=== PATIENT | female | born 1980 | race Caucasian/White ===

== ENCOUNTER 2017-11-08 04:21 | Observation (INO) | payer BC ==
[2017-11-08] MEDS ORDERED: SODIUM CHLORIDE 0.9% 1000ML 1,000 ML IVS ONE (04:46)
--- NOTE | 2017-11-08 04:46 | ED.PDOC ---
History of Present Illness - General Chief Complaint: Syncope/Near Syncope Stated Complaint: Syncope, head lac, neck pain Time Seen by Provider: 11/08/17 04:40 Source: patient Exam Limitations: no limitations - History of Present Illness Initial Comments: patient comes in today with syncopal episode. Patient states she was in her normal usual health on going to bed. She woke up to go to the bathroom and noted that she had a severe headache that was bilateral, constant, and not associated with other symptoms such as vision change or nausea. Patient states she got dizzy and then awoke on the floor with a laceration to her head. Patient has had a syncopal episode in the remote past but that was with . Since then she has had a hysterectomy. Patient stated she's had no recent fever, chills, cough or cold symptoms. She had no palpitations or shortness of breath prior to the episode or currently. Patient did suffer a laceration to her forehead on the right side. Patient is unsure of how long she was unconscious but is alert and oriented to person place and time here. Patient recently started on some medication for her thyroid earlier this week, level fluroxene and was started at the same time on [id number] vitamin D. Patient also had a first seizure performed by dermatology with a lesion removed on her lower back. Patient's past medical history is significant for hypothyroidism. She does smoke about half a pack a day and drinks a couple of beers every couple of days. She did have alcohol last night. Patient does not take illicit drugs. Timing/Prior Episodes: remote history Precipitating Factors: other - severe headache Context: standing Loss of Consciousness: unsure Current Symptoms: headache Allergies/Adverse Reactions: Allergies NO KNOWN ALLERGY Allergy (Verified 11/08/17 04:48) Home Medications: Ambulatory Orders Ibuprofen [Motrin] 800 mg PO PRN 11/08/17 Levothyroxine Sodium 50 mcg PO AC 11/08/17 Review of Systems - Review of Systems Constitutional: States: see HPI. Denies: chills, fever EENTM: States: other - headache. Denies: eye pain, ear pain, nose pain, nose congestion, throat pain Respiratory: States: no symptoms reported. Denies: cough, short of breath, wheezing Cardiology: States: no symptoms reported. Denies: chest pain, palpitations Gastrointestinal/Abdominal: States: no symptoms reported. Denies: abdominal pain, diarrhea, nausea, vomiting Genitourinary: States: no symptoms reported Musculoskeletal: States: see HPI, neck pain, other - pain to the left shoulder and right knee Skin: States: no symptoms reported Neurological: States: see HPI, headache. Denies: anxiety, depressed, numbness, paresthesia, pre-existing deficit, tingling, tremors Endocrine: States: no symptoms reported Past Medical History (General) - Patient Medical History Hx Other PMH: Yes - hypothyroidism Surgical History: other - hyst Physical Exam - Physical Exam General Appearance: Other - awake and alert with C-collar in place, laceration to right forehead Eyes, Ears, Nose, Throat Exam: PERRL/EOMI, normal ENT inspection, TMs normal, pharynx normal Neck: other Cardiovascular/Respiratory: regular rate, rhythm, no M/R/G, normal peripheral pulses, no JVD, normal breath sounds, no respiratory distress Gastrointestinal/Abdominal: normal bowel sounds, non tender, soft Back Exam: normal inspection, no CVA tenderness Extremity: normal range of motion, other - no deformity but abrasions to right knee and TTP to the left shoulder and humerus and right knee with palpation 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, 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 Exam: normal hearing, normal speech Motor/Sensory: no motor deficit, no sensory deficit, no pronator drift DTR: 2+: Biceps, left, Biceps, right Skin Exam: normal color, warm/dry Progress - Results/Orders Results/Orders: 11/08/17 04:40 Cervical Spine [CT] Stat Head [CT] Stat Humerus,Left [RAD] Stat Shoulder,Left 2 or More Views [RAD] Stat URINALYSIS Stat 11/08/17 04:42 EKG Assessment ONCE 11/08/17 04:45 EKG STAT 11/08/17 04:46 Sodium Chloride 0.9% 1000ML [Ns 1000 ml] 1,000 ml IVS ONCE 11/08/17 04:47 Knee,Right 2 or More Views [RAD] Stat 11/08/17 04:58 KCl 20Meq/Water For Inj 100Ml [Potassium 20meq in Water 100ml] 20 meq Premix Bag 1 bag IVPB ONCE 11/08/17 05:12 URINE DRUG SCREEN, 7 ASSAY Stat Laboratory Results WBC 16.5 K/mm3 (4.8-10.8) H 11/08/17 04:40 RBC 4.47 M/mm3 (4.20-5.40) 11/08/17 04:40 Hgb 15.1 gm/dL (12.0-16.0) 11/08/17 04:40 Hct 44.3 % (36.0-47.0) 11/08/17 04:40 MCV 99.1 fl (81.0-99.0) H 11/08/17 04:40 MCH 33.9 pg (27.0-31.0) H 11/08/17 04:40 MCHC 34.2 g/dL (33.0-37.0) 11/08/17 04:40 RDW 12.5 % (11.5-14.5) 11/08/17 04:40 Plt Count 308 K/mm3 (130-400) 11/08/17 04:40 MPV 7.6 fl (7.40-10.4) 11/08/17 04:40 Absolute Neuts (auto) 9.50 K/uL (1.8-6.8) H 11/08/17 04:40 Absolute Lymphs (auto) 5.50 K/uL (1.0-3.4) H 11/08/17 04:40 Absolute Monos (auto) 1.10 K/uL (0.2-0.8) H 11/08/17 04:40 Absolute Eos (auto) 0.20 K/uL (0.0-0.4) 11/08/17 04:40 Absolute Basos (auto) 0.10 K/uL (0.0-0.1) 11/08/17 04:40 Neutrophils % 57.9 % (42.0-78.0) 11/08/17 04:40 Lymphocytes % 33.4 % (20.0-50.0) 11/08/17 04:40 Monocytes % 6.6 % (2.0-9.0) 11/08/17 04:40 Eosinophils % 1.5 % (1.0-5.0) 11/08/17 04:40 Basophils % 0.6 % (0.0-2.0) 11/08/17 04:40 Sodium 137 mmol/L (135-145) 11/08/17 04:40 Potassium 2.9 mmol/L (3.6-5.0) L 11/08/17 04:40 Chloride 102 mmol/L (101-111) 11/08/17 04:40 Carbon Dioxide 25 mmol/L (21-31) 11/08/17 04:40 Anion Gap 12.9 (12-18) 11/08/17 04:40 BUN 10 mg/dL (7-18) 11/08/17 04:40 Creatinine 0.67 mg/dL (0.6-1.3) 11/08/17 04:40 BUN/Creatinine Ratio 14.9 (10-20) 11/08/17 04:40 Random Glucose 96 mg/dL (70-105) 11/08/17 04:40 Serum Osmolality 272.7 mOsm/L (275-295) L 11/08/17 04:40 Calcium 8.8 mg/dL (8.4-10.2) 11/08/17 04:40 Total Bilirubin 0.7 mg/dL (0.2-1.0) 11/08/17 04:40 AST 18 IU/L (10-42) 11/08/17 04:40 ALT 16 IU/L (10-60) 11/08/17 04:40 Alkaline Phosphatase 45 IU/L (42-121) 11/08/17 04:40 Creatine Kinase 105 IU/L (26-140) 11/08/17 04:40 CK-MB (CK-2) 1.5 ng/mL (0.0-4.4) 11/08/17 04:40 CK-MB (CK-2) % Not Reportable 11/08/17 04:40 Troponin I < 0.02 ng/mL (0.01-0.05) 11/08/17 04:40 Serum Total Protein 6.3 gm/dL (6.4-8.2) L 11/08/17 04:40 Albumin 3.9 g/dl (3.2-5.5) 11/08/17 04:40 Globulin 2.4 gm/dL (2.3-3.5) 11/08/17 04:40 Albumin/Globulin Ratio 1.6 (1.1-1.9) 11/08/17 04:40 Ethyl Alcohol < 5.40 mg/dL (0-79) 09/30/18 04:40 CT reading is still pending but mass vs bleeding seen in the posterior area. Air evac called and will transfer to NS consult. - EKG/XRAY/CT EKG: Sinus, no ST T wave changes Comments: normal QTC an normal axis with 1st degree AV block Departure - Departure Clinical Impression: Cerebral brain hemorrhage Syncope Qualifiers: Syncope type: unspecified Qualified Code(s): R55 - Syncope and collapse Disposition: Transfer to Hospital Condition: Good Departure Forms: ED Discharge - Pt. Copy, Patient Portal Self Enrollment Referrals: John Barros MD [Primary Care Provider] - 1-2 Weeks Home Medications: Ambulatory Orders Ibuprofen [Motrin] 800 mg PO PRN 11/08/17 Levothyroxine Sodium 50 mcg PO AC 11/08/17 Transfer to Outside Facility - Transfer Information Accepting Provider:: Robi Accepting Facility: [facility] Reason for Transfer: specialized care not available
[2017-11-08] MEDS ORDERED: ONDANSETRON INJ 4 MG/2 ML VIAL IV ONE (04:54)
[2017-11-08] MEDS ORDERED: KCL 20MEQ/WATER FOR INJ 100ML 20 MEQ in PREMIX BAG 1 BAG IVPB ONE (04:58)
[2017-11-08] MEDS ORDERED: KCL 20MEQ/WATER FOR INJ 100ML 100 ML IVPB ONE (05:05)
--- NOTE | 2017-11-08 05:28 | CT ---
EXAM DESCRIPTION: Head CLINICAL HISTORY: syncope with head injury preceding ERAZO COMPARISON: None Available. Technique: Contiguous axial images of the brain were obtained without the administration of intravenous contrast. Coronal and sagittal reformats obtained and reviewed. This exam was performed according to our departmental dose-optimization program which includes use of Automated Exposure Control, adjustment of the mA and/or kV according to patient size and/or use of iterative reconstruction technique. Findings: Brain: No hemorrhage. No territorial infarct. No mass effect. No herniation. Ventricles: Within normal limits for patient's age. Bones: No acute osseous abnormality. Paranasal sinuses: Unremarkable. Mastoid air cells: Unremarkable. Soft tissues: No acute abnormality. IMPRESSION: No acute intracranial abnormalities. Electronically signed by: John Rich DO 11/08/2017 5:27 AM CDT
--- NOTE | 2017-11-08 05:31 | RAD ---
EXAM DESCRIPTION: Shoulder,Left 2 or More Views CLINICAL HISTORY: 37 years Female, fall with pain COMPARISON: None. FINDINGS: No fracture or dislocation. Soft tissues are unremarkable. IMPRESSION: No acute abnormality. Electronically signed by: John Rich DO 11/08/2017 5:30 AM CDT
--- NOTE | 2017-11-08 05:31 | CT ---
EXAM DESCRIPTION: Cervical Spine CLINICAL HISTORY: 37 years Female syncope with head injury preceding ERAZO COMPARISON: None TECHNIQUE: Multiplanar imaging through the cervical spine without contrast. This exam was performed according to our departmental dose-optimization program, which includes automated exposure control, adjustment of the mA and/or kV according to patient size and/or use of iterative reconstruction technique. FINDINGS: No fracture. No subluxation. Disc spaces are preserved. Soft tissues are unremarkable. Visualized lung is clear. IMPRESSION: No acute abnormality. No fracture or subluxation. Electronically signed by: John Rich DO 11/08/2017 5:30 AM CDT
--- NOTE | 2017-11-08 05:32 | RAD ---
EXAM DESCRIPTION: Knee,Right 2 or More Views CLINICAL HISTORY: 37 years Female, fall and pain COMPARISON: None. FINDINGS: No fracture or dislocation. Soft tissues are unremarkable. IMPRESSION: No acute abnormality. Electronically signed by: John Rich DO 11/08/2017 5:30 AM CDT
--- NOTE | 2017-11-08 05:32 | RAD ---
EXAM DESCRIPTION: Humerus,Left CLINICAL HISTORY: 37 years Female, fall with pain COMPARISON: None. FINDINGS: No fracture or dislocation. Soft tissues are unremarkable. IMPRESSION: No acute abnormality. Electronically signed by: John Rich DO 11/08/2017 5:31 AM CDT
[2017-11-08] MEDS ORDERED: CHLORHEXIDINE GLUCONATE 4 % 15 ML UD TOP ONE (05:40)
[2017-11-08] MEDS ORDERED: LIDOCAINE 1% 10 ML VIAL INJ ONE (05:40)
[2017-11-08] MEDS ORDERED: IBUPROFEN 200 MG TAB PO ONE (06:13)
--- NOTE | 2017-11-08 06:23 | HP ---
SUPERVISING PHYSICIAN: Olayinka Blanco M.D. CHIEF COMPLAINT: Syncopal episode.with closed head injury. HISTORY OF PRESENT ILLNESS: Ms. Dick is a 37 year-old female patient that presented to the Emergency Department early this morning after she had had a syncopal episode. She noted that she had been in her normal state of health and went to bed, woke up to go to the bathroom and noted she had a severe headache that was bilateral and constant, but not associated with any other symptoms. No change in her vision or nausea. She attempted to sit on the toilet and then later awoke on the floor and had a laceration to her forehead. She has had a previous syncopal episode in the past but it was associated with a . She denied any significant symptoms. No fevers, chills, coughs. No palpitations or shortness of breath. Her recall of the events was limited and she is unsure how long she was actually unconscious, but she was alert and oriented on admission to the E. R. The only significant change in her medical history is that she was recently diagnosed with hypothyroidism and started on Levothyroxine in the last week as well as over-the -counter Vitamin D. She also had last week an excision of a lesion of her lower back. She also drinks alcohol on a fairly regular basis and had a drink the night of, but does not use illicit drugs and her alcohol level less than 5. Initially workup included trauma workup with CT scans of the head and C- spine which were all without any acute findings. No dislocations. No acute fractures. 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 There is no noted infarct or other acute findings. Initially the patient was to be transferred via air evac to [facility] on initial CT reading by Dr. Monk as there were concerns for a mass versus a bleed, however after consultation with the radiologist the findings were noted to be congenital and an incidental finding. At that point the patient had lab studies that showed she had a leukocytosis of 16,500 without a left shift. Chemistries showed a mild hypokalemia with a 2.9 potassium. Vital signs were showing her to be stable, afebrile. Dr. Monk repaired the laceration to her forehead with sutures and then requested that the patient be placed in Observation given the loss of consciousness and findings initially on CT as well as the reported sudden headache prior to her syncopal episode. The patient is going to be placed in Observation for close neurological and cardiac monitoring. She was placed in Observation in stable condition. PAST MEDICAL HISTORY: 1. Hypothyroidism. PAST SURGICAL HISTORY: 1. Partial hysterectomy. HOME MEDICATIONS: 1. Levothyroxine 50 mcg daily. 2. Motrin 800 mg every 6 hours as needed for pain. ALLERGIES: NO KNOWN DRUG ALLERGIES. FAMILY HISTORY: Noncontributory. SOCIAL HISTORY: The patient lives in [place] and is recently , going through a divorce. 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 She is a current tobacco smoker of approximately 1/2 pack to 1 pack of cigarettes daily. She also notes that she has been drinking on a fairly regular basis anywhere from 3 beers to 2 or 3 mixed drinks daily, but is working to decrease this. She denies any use of illicit drugs. REVIEW OF SYSTEMS: CONSTITUTIONAL: Denied any fevers or chills. HEENT: Denied any ear aches, sore throat, nasal congestion. RESPIRATORY: Denies any shortness of breath, coughing or wheezing. CARDIOVASCULAR: Denies any chest pains or palpitations, but as noted in History of Present Illness a current syncopal episode. GASTROINTESTINAL: Denied any nausea, vomiting, diarrhea or abdominal pains. GENITOURINARY: Denied any dysuria, hematuria or polyuria. MUSCULOSKELETAL: As noted on History of Present Illness, she has some associated neck pain but was cleared by CT as well as some pain to her left shoulder and right knee status post fall. INTEGUMENT: No reported rashes, lesions, but she did have a cyst removed on her back within the last week associated as noted in History of Present Illness the 2 to 3 inch laceration to the right side of the forehead with sutures. NEUROLOGIC: As noted in history of present illness, a headache, anxiety, but denies any paresthesias, numbness, seizure activity, ataxia or tremors. PHYSICAL EXAMINATION: VITAL SIGNS: Temperature 97.2, pulse 72, blood pressure 112/73, respirations 20 , satting 99% on room air. Admission weight was 75.6 kg. GENERAL: On admission to the Medical/Surgical floor the patient is obviously anxious but shows to be in no acute distress. She is alert and oriented. HEENT: Tympanic membranes are clear bilaterally. Oropharynx was pink and moist without any lesions. There is a laceration overlying the right eyebrow/ forehead with sutures in place. No noted complications. NECK: Supple, non-tender with some pain on rotation and extension with the patient having C-spine cleared by CT and C-spine removed prior to admission by Dr. Monk. The neck is without any obvious trauma. There is no vertebral tenderness. No step-offs noted. RESPIRATORY: Lung sounds were clear to auscultation bilaterally without any rhonchi, wheezing or rales. CARDIOVASCULAR: Heart was regular rate and rhythm without appreciable murmurs, gallops, or rubs. ABDOMEN: Soft, non-tender with positive bowel sounds. BACK: Without any obvious trauma other than a small laceration surgical site mid back without any signs of inflammation or infection. No CVA tenderness or paravertebral tenderness. EXTREMITIES: There is an abrasion on the right knee that is tender to palpation as well as left shoulder and humerus are tender on palpation but without any obvious deformities. She does move all extremities ad maki. There is no clubbing, cyanosis or edema. NEUROLOGIC: Cranial nerves II-XII are grossly intact. Facial features were symmetrical. Extraocular movements are within normal limits. There was no notable nystagmus. She is alert and oriented times three. Hook Up Driver were equal and strong. LABORATORY: White count was 16,500 with no left shift. Platelet count 308, 000. Chemistries showed just a mildly low potassium at 2.9. All others were within normal limits. BUN 10, creatinine 0.67, magnesium normal at 2.0. Liver functions all were within normal limits. TSH was elevated at 10.76. Urinalysis showed a moderate amount of blood with microscopic revealing 20 to 30 RBCs, 1 to 3 WBCs, 2+ bacteria, 3 to 5 epithelials. Urine toxicology screen was negative for all substances tested. Ethyl alcohol was less than 5.4. RADIOLOGY: In the Emergency Department, she had a CT of her cervical spine and head and per radiology interpretation there were no acute findings. No fracture or subluxations. She had x-rays of her shoulder and humerus on the left with no acute abnormalities noted per radiology interpretation. ASSESSMENT: 1. Syncopal episode with loss of consciousness, uncertain etiology without any acute findings on CT for hemorrhage. 2. 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 Will need close followup in the outpatient setting with primary care and neurology. 3. Hypothyroidism, newly diagnosed, recently started on supplementation within the last week. 4. Mild electrolyte imbalance to include hypokalemia likely from some dehydration from alcohol consumption requiring replacement both orally and parenterally. 5. Chronic tobacco abuse in a current smoker. PLAN: The patient is going to be placed in Observation for both neurological and cardiac monitoring. Given the findings on CT, even though those were reported out as congenital in nature and likely not contributing to the current symptomatology and syncopal episode, certainly warrants further overnight observation. There is a remote chance that she may have had a seizure related to those findings on CT, therefore close neurological monitoring would be beneficial. Should she show to be stable overnight, certainly can discharge to followup with her primary care provider as well as referral at some point to neurology to followup on the CT findings. As soon as her potassium is normalized, I will saline lock her. Will also do tilt vital signs and encourage the patient to walk to further assess any recurrence of symptoms. Anticipate discharging tomorrow. At that time it would be suggested that we provide her with CT findings on CD as well as reports that she can take to her primary care provider an OB in [place]. She was encouraged and counseled on the need to stop smoking and in that efforts will utilize a nicotine patch to prevent any anxiety. Once discharged, again she will need to followup with neurology as well as her primary care provider to have the stitches removed as directed. Until then will continue to monitor and treat appropriately. #[id number] [facility]
[2017-11-08] MEDS ORDERED: KCL 40MEQ/NS 1,000 ML IVS PRN (08:46)
[2017-11-08] MEDS ORDERED: POTASSIUM CHLORIDE 20 MEQ TAB PO ONE (08:47)
[2017-11-08] MEDS ORDERED: SODIUM CHLORIDE 0.9% (FLUSH) 10 ML SYG IV PRN (08:54)
[2017-11-08] MEDS ORDERED: ACETAMINOPHEN 325 MG TAB PO PRN (08:54)
[2017-11-08] MEDS ORDERED: SODIUM CHL 0.9% 50ML MIN-BAG+ 50 ML IVPB ONE (08:54)
[2017-11-08] MEDS ORDERED: cefTRIAXone SODIUM 1 GM VIAL ONE (08:55)
[2017-11-08] MEDS ORDERED: IV SET AND CAP CHANGE INJ INJ SCH (09:00)
[2017-11-08] MEDS: cefTRIAXone SODIUM 1 GM in SODIUM CHL 0.9% 50ML MIN-BAG+ 50 ML IVPB SCH (09:07)
[2017-11-08] MEDS ORDERED: IBUPROFEN 400 MG TAB PO PRN (14:10)
[2017-11-08] MEDS: IBUPROFEN 200 MG TAB PO PRN (14:53)
[2017-11-08] MEDS: ALPRAZolam 0.5 MG TAB PO PRN (15:55)
[2017-11-08] MEDS: NICOTINE PATCH 14 MG TD SCH (15:55)
[2017-11-09] MEDS: IBUPROFEN 200 MG TAB PO PRN ×2 (02:02→08:33)
[2017-11-09 02:39] VITALS: TEMP 98.6
[2017-11-09 05:38] VITALS: O2SAT 98
[2017-11-09] MEDS ORDERED: SODIUM CHL 0.9% 50ML MIN-BAG+ 50 ML IVPB ONE (08:18)
[2017-11-09] MEDS ORDERED: cefTRIAXone SODIUM 1 GM VIAL ONE (08:18)
[2017-11-09] MEDS: NICOTINE PATCH 14 MG TD SCH (08:30)
[2017-11-09] MEDS: cefTRIAXone SODIUM 1 GM in SODIUM CHL 0.9% 50ML MIN-BAG+ 50 ML IVPB SCH (08:35)
[2017-11-09] MEDS: ALPRAZolam 0.5 MG TAB PO PRN (09:13)
[2017-11-09 14:44] VITALS: BP 157/90
--- NOTE | 2017-11-09 19:49 | DS ---
SUPERVISING PHYSICIAN: Lamont Solis M.D. ADMISSION DIAGNOSIS: 1. Syncope. 2. Forehead laceration. 3. Hypothyroidism newly diagnosed. 4. Electrolyte imbalance. 5. Abnormal brain CT. DISCHARGE DIAGNOSIS: 1. Syncope. 2. Forehead laceration. 3. Hypothyroidism newly diagnosed. 4. Electrolyte imbalance. 5. Abnormal brain CT. HOSPITAL COURSE: This is a 37 year-old female who came to the emergency room after having a syncopal episode. She went to bed in her normal state of health but woke up with a severe headache. She went to the restroom and attempted to sit on the toilet, and later woke up on the floor with blood everywhere. She looked in the mirror and noted she had a forehead laceration. She called her mother who subsequently called 911 and she was brought to the Emergency Room. She was evaluated in the Emergency Room and had simple repair of the forehead laceration. CT scan of the brain initially was interpreted as normal, however an addendum was made. It appeared that she had an incidental findings in the posterior cranial fossa of a cystic type lesion which potentially represented a priyanka cisterna magna or arachnoid cyst. She was admitted for observation and was also noted to have a very mild urinary tract infection with a leukocytosis of 16.5. She also states that she had had a leukocytosis as an outpatient as well with no symptoms. Anyhow, overnight she had no further syncopal episodes. No complaints of headache. She did have pretty significant anxiety, however. She was quite worried about what was found on her brain. PLAN: I spoke with her this morning and instructed her that we would get her in with a neurosurgeon regarding her abnormal brain CT. I spoke with the office of Dr. Rhoades in [place] who, after I faxed her information, agreed to see her tomorrow at 11:45 in the morning. She was given a copy of her CT scan of the brain to take with her as well as her reports. I also spoke with her about establishing with a primary care physician and she agreed to followup with Dr. Solis as an outpatient. Therefore the patient will be discharged today in stable condition with plans for followup with a neurosurgeon as well as primary care physician. I have also provided her some Xanax until she is seen by Dr. Will for more of a chronic management of her anxiety issues. Prescription for Ceftin is also being called into [facility] for treatment of the urinary tract infection, although it is quite mild per the urinalysis. #[id number] [facility]
== END 2017-11-09 14:50 | disposition home or self-care (01) ==
LOC: ER 04:21 → MS 06:22
PROVIDERS: ADMIT Nurse Practitioner Family; ATTEND Nurse Practitioner
DX: S01.81XA Laceration without foreign body of other part of head, initial encounter (principal); R55 Syncope and collapse; E87.6 Hypokalemia; E87.8 Other disorders of electrolyte and fluid balance, not elsewhere classified; E03.9 Hypothyroidism, unspecified; R93.0 Abnormal findings on diagnostic imaging of skull and head, not elsewhere classified; R51 Headache; M54.2 Cervicalgia; M25.512 Pain in left shoulder; M25.561 Pain in right knee; M79.622 Pain in left upper arm; F17.210 Nicotine dependence, cigarettes, uncomplicated; Z79.899 Other long term (current) drug therapy; W18.11XA Fall from or off toilet without subsequent striking against object, initial encounter; Y93.89 Activity, other specified; Y92.002 Bathroom of unspecified non-institutional (private) residence as the place of occurrence of the external cause
CPT/HCPCS: 12013; 96366; 96367; 96376; J0696 ×2; J2405; J7030; J3480 ×2; J7050 ×2; 82553; 80053; 80307; 36415 ×2; 81001; 85025; 82550; 80320; 83735; 84132; 84443; 84484; 73060; 73560; 73030; 70450; 72125; 94760 ×2; 99406; 99285; 93005; G0378; 96365; 96375

== ENCOUNTER → 2018-06-09 | Outpatient (CLI) | payer BC | LOC: GMAE 10:41 | PROVIDERS: ATTEND Family Medicine | DX: E03.9 Hypothyroidism, unspecified (principal) ==

== ENCOUNTER → 2018-11-14 | Outpatient (CLI) | payer BC ==
--- NOTE | 2018-11-14 14:51 | RAD ---
EXAM DESCRIPTION: Chest,2 Views (accession [id number]), Bilateral Ribs (accession [id number]) CLINICAL HISTORY: ACUTE UPPER RESP INF. Pain. COMPARISON: None TECHNIQUE: PA/lateral views of the chest. Two views of the bilateral ribs. FINDINGS/IMPRESSION: Mild bilateral bronchovascular thickening may represent reactive airway changes or mild bronchitis. No focal consolidation, significant pneumothorax or pleural effusion. The heart is normal in size. The bilateral ribs are intact without acute displaced fracture or dislocation. No acute osseous abnormality. Electronically signed by: Dennis Pinto DO 11/14/2018 2:50 PM CDT
--- NOTE | 2018-11-14 14:51 | RAD ---
EXAM DESCRIPTION: Chest,2 Views (accession [id number]), Bilateral Ribs (accession [id number]) CLINICAL HISTORY: ACUTE UPPER RESP INF. Pain. COMPARISON: None TECHNIQUE: PA/lateral views of the chest. Two views of the bilateral ribs. FINDINGS/IMPRESSION: Mild bilateral bronchovascular thickening may represent reactive airway changes or mild bronchitis. No focal consolidation, significant pneumothorax or pleural effusion. The heart is normal in size. The bilateral ribs are intact without acute displaced fracture or dislocation. No acute osseous abnormality. Electronically signed by: Dennis Pinto DO 11/14/2018 2:50 PM CDT
== END ==
LOC: RAD 14:10
PROVIDERS: ATTEND Nurse Practitioner Family
DX: J06.9 Acute upper respiratory infection, unspecified (principal)

== ENCOUNTER → 2018-11-25 | Outpatient (CLI) | payer BC | LOC: GMAE 16:53 | PROVIDERS: ATTEND Family Medicine | DX: D51.9 Vitamin B12 deficiency anemia, unspecified (principal); R53.83 Other fatigue; E55.9 Vitamin D deficiency, unspecified ==

== ENCOUNTER → 2019-01-31 | Outpatient (CLI) | payer BC ==
--- NOTE | 2019-01-31 16:00 | US ---
US THYROID HISTORY: 38 years Female ACQUIRED HYPOTHYROIDISM COMPARISON: CT cervical spine dated November 08, 2017. TECHNIQUE: Multiple longitudinal and transverse sonographic images of the thyroid and neck are obtained. FINDINGS: Right thyroid lobe is normal in size measuring 4.1 x 1.3 x 1.3 cm. Left thyroid lobe is normal in size measuring 3.8 x 0.9 x 1.0 cm. Thyroid isthmus is not enlarged. Thyroid parenchyma demonstrates mildly heterogeneous parenchyma. Subcentimeter cystic focus is noted in the right thyroid lobe, compatible with benign lesions.. No discrete thyroid nodules detected. IMPRESSION: No suspicious thyroid nodule observed. Electronically signed by: Golden Kim MD 01/31/2019 3:59 PM PETROGRAPHER
== END ==
LOC: US 13:54
PROVIDERS: ATTEND Internal Medicine Endocrinology, Diabetes & Metabolism
DX: E03.9 Hypothyroidism, unspecified (principal); E04.1 Nontoxic single thyroid nodule; E04.9 Nontoxic goiter, unspecified; Z83.49 Family history of other endocrine, nutritional and metabolic diseases

== ENCOUNTER → 2019-02-28 | Outpatient (CLI) | payer BC | LOC: LAB.O 16:36 | PROVIDERS: ATTEND Internal Medicine Endocrinology, Diabetes & Metabolism | DX: E03.9 Hypothyroidism, unspecified (principal); E04.1 Nontoxic single thyroid nodule; E04.9 Nontoxic goiter, unspecified; Z83.49 Family history of other endocrine, nutritional and metabolic diseases ==

== ENCOUNTER → 2019-03-08 | Outpatient (CLI) | payer BC ==
--- NOTE | 2019-03-09 16:47 | CT ---
EXAM DESCRIPTION: Chest w/Contrast CLINICAL HISTORY: r91.1 lung nodule seen on chest x-ray. COMPARISON: Chest x-ray November 14, 2018 TECHNIQUE: Postcontrast CT images of the chest are obtained using standard imaging protocol. This exam was performed according to our departmental dose-optimization program, which includes automated exposure control, adjustment of the mA and/or kV according to patient size and/or use of iterative reconstruction technique . FINDINGS: Heart is unremarkable. Bovine origin of the great vessels from the aortic arch. No pathologically enlarged mediastinal, hilar, or axillary lymphadenopathy seen. No pleural or pericardial effusion. Visualized upper abdomen shows no acute findings. Lungs are normally aerated without acute appearing infiltrate or consolidation. Mild paraseptal emphysematous changes to lung apices are seen. Tiny 4 mm noncalcified pulmonary nodule in the left lung apex is seen. Osseous structures show no aggressive bony lesions. Nonaggressive-appearing 8 mm sclerotic lesion is seen at T5 likely representing bone island. Healed fracture of the anterior right second rib is seen. Nonaggressive-appearing sclerotic lesion in the right fifth rib measures 14 mm. Small sclerotic lesion in the left transverse process at T9 IMPRESSION: No acute findings on CT of the chest. 4.0 mm solid pulmonary nodule within the upper lobe. A non-contrast Chest CT at 12 months is optional. If performed and the nodule is stable at 12 months, no further follow-up is recommended. These guidelines do not apply to immunocompromised patients and patients with cancer. Follow up in patients with significant comorbidities as clinically warranted. For lung cancer screening, adhere to Lung-RADS guidelines. Reference: Radiology. 2017; 284(1):228-43. Several indeterminate sclerotic lesions of the thoracic spine and right fifth rib are seen. If patient has a history of primary neoplastic process, consider whole body bone scan imaging. Electronically signed by: Aung Larry MD 03/09/2019 4:46 PM [employer]
== END ==
LOC: LAB.O 15:32
PROVIDERS: ATTEND Internal Medicine Hematology & Oncology
DX: R91.1 Solitary pulmonary nodule (principal); D72.829 Elevated white blood cell count, unspecified

== ENCOUNTER → 2019-06-02 | Outpatient (CLI) | payer BC | LOC: LAB.O 16:33 | PROVIDERS: ATTEND Internal Medicine Endocrinology, Diabetes & Metabolism | DX: E03.9 Hypothyroidism, unspecified (principal); E04.1 Nontoxic single thyroid nodule; E04.9 Nontoxic goiter, unspecified; Z83.49 Family history of other endocrine, nutritional and metabolic diseases ==

== ENCOUNTER → 2019-08-31 | Outpatient (CLI) | payer BC | LOC: LAB.O 16:34 | PROVIDERS: ATTEND Internal Medicine Endocrinology, Diabetes & Metabolism | DX: E03.9 Hypothyroidism, unspecified (principal); E04.1 Nontoxic single thyroid nodule; Z83.49 Family history of other endocrine, nutritional and metabolic diseases ==

== ENCOUNTER 2019-12-31 11:35 | Emergency (ER) | payer BC ==
[2019-12-31] MEDS ORDERED: KETOROLAC TROMETHAMINE INJ 60 MG/2 ML VIAL IM ONE (12:04)
--- NOTE | 2019-12-31 12:07 | ED.PDOC ---
History of Present Illness - General Chief Complaint: Abdominal Pain Stated Complaint: Right rib pain Time Seen by Provider: 12/31/19 11:41 Source: patient - History of Present Illness Initial Comments: This is a 39-year-old female with no significant past medical history presenting to the emergency department with right Inframammary, anterolateral chest wall pain that began approximately 1 month ago. Pain seemed a bit improved after a few days, but it has gotten worse over the last week. She denies any inciting injury or trauma. She denies any recent changes in her activity level, no recent new exercises or strain. Pain gets worse with cough, breathing, moving, laughing. She states the pain began to radiate up into her breast and upper chest wall today, and this is what concerned her and prompted her to come to the emergency room today. She denies any abdominal pain. She denies any nausea/vomiting. She smokes 1 pack/day and states she has a chronic smoker's cough, but denies any changes in her cough. No COVID-19 contacts. She denies any fever. No history of DVT/PE, no recent traveling, no recent leg swelling, no recent hospitalizations. Allergies/Adverse Reactions: Allergies NO KNOWN ALLERGY Allergy (Verified 11/08/17 08:55) Home Medications: Ambulatory Orders Ibuprofen [Motrin] 800 mg PO Q6HR PRN 11/08/17 Levothyroxine Sodium 50 mcg PO AC 11/08/17 ALPRAZolam [Xanax] 0.25 mg PO TID PRN 10 Days #30 tab 11/09/17 Cyclobenzaprine HCl [Flexeril] 10 mg PO Q8HR PRN #20 tab 12/31/19 Ibuprofen [Motrin] 600 mg PO Q8HR PRN #30 tab 12/31/19 Review of Systems - Review of Systems Constitutional: Denies: chills, fever EENTM: Denies: ear pain, nose pain, throat pain Respiratory: States: cough - Chronic smoker's cough, unchanged. Denies: orthopnea, short of breath Cardiology: States: chest pain. Denies: edema, syncope Gastrointestinal/Abdominal: Denies: abdominal pain, diarrhea, nausea, vomiting Genitourinary: Denies: dysuria, hematuria, pain Musculoskeletal: Denies: back pain, joint pain, joint swelling, muscle pain, neck pain Skin: Denies: lesions, rash Neurological: Denies: headache, weakness Endocrine: States: no symptoms reported Past Medical History (General) - Patient Medical History Hx Seizures: No Hx Stroke: No Hx Dementia: No Hx Asthma: No Hx of COPD: No Hx Cardiac Disorders: No Hx Congestive Heart Failure: No Hx Pacemaker: No Hx Hypertension: Yes Hx Thyroid Disease: Yes Hx Diabetes: No Hx Gastroesophageal Reflux: No Hx Renal Disease: No Hx Cancer: No Hx of HIV: No Hx Hepatitis C: No Hx MRSA: No Surgical History: Hysterectomy - Vaccination History Hx Tetanus, Diphtheria Vaccination: Yes Hx Influenza Vaccination: No - Social History Hx Tobacco Use: Yes Hx Alcohol Use: Yes Hx Substance Use: No Hx Physical Abuse: No Hx Emotional Abuse: No Family Medical History - Family History Mother Family History: No Known Living Status: Still Living Physical Exam - Physical Exam General Appearance: Alert, Comfortable Ears, Nose, Throat: normal ENT inspection, normal pharynx Neck: non-tender, full range of motion, supple Respiratory: lungs clear, normal breath sounds, no respiratory distress, no accessory muscle use, other - Reproducible tenderness, right lower anterolateral ribs, no crepitus, no deformities. There is no bruising or rash to the overlying skin Cardiovascular/Chest: normal peripheral pulses, regular rate, rhythm, no edema, no gallop Gastrointestinal/Abdominal: non tender, soft, other - No right upper quadrant tenderness, negative Daniel sign, no CVA tenderness. Back Exam: no CVA tenderness, no vertebral tenderness Extremity: non-tender, normal inspection Neurologic: no motor/sensory deficits, normal mood/affect, oriented x 3 Skin Exam: normal color, warm/dry Progress - Progress Progress: 12/31/19 13:28 Rechecked. Pain improved. Discussed x-ray and EKG findings. Strict warnings given to return the emergency room for worsening pain, shortness of breath, leg swelling, hemoptysis, syncope, or any other concerns DDx: Pneumothorax, rib fracture, pleurisy, other chest wall pain MDM: 39-year-old female presenting with chest wall pain of uncertain etiology. She initially was triaged as abdominal pain, but her abdominal exam is completely benign on multiple exams. There is no Daniel sign. No nausea/vomiting. Low suspicion for gallbladder/liver problems. She has reproducible tenderness to the right anterolateral chest wall. Rib series negative, EKG normal. She is PERC negative, PE ruled out. Very low suspicion for cardiac ischemia based on normal EKG, age, minimal risk factors, and reproducibility of the pain on exam. Suspect chest wall pain. No rib fractures noted on x-ray, no pneumothorax. Will discharge home with NSAIDs/Flexeril, patient states she is unable to tolerate opioids. Strict ER warnings given. Georges Mckeon DO [facility] #[id number] - Results/Orders Results/Orders: EXAM DESCRIPTION: X Ray Ribs, right 3 Views CLINICAL HISTORY: 39 years Female, right lower anterolateral rib pain COMPARISON: November 14, 2018. FINDINGS/IMPRESSION: 1. No acute fracture. 2. Visualized lung parenchyma is normal. Electronically signed by: Riccardo Moise MD 12/31/2019 12:33 EKG reviewed personally by me at 1324. Normal sinus rhythm, rate of 77, normal axis, normal intervals, no ST segment elevations or depressions Departure - Departure Clinical Impression: Acute chest wall pain Time of Disposition: 13:30 Disposition: Discharge to Home or Self Care Condition: Good Departure Forms: ED Discharge - Pt. Copy, Patient Portal Self Enrollment Instructions: DI for Abdominal Pain-Adult Diet: resume usual diet Activity: increase activity as tolerated Referrals: JANE SHAW MD [Primary Care Provider] - 1-5 Days Prescriptions: Cyclobenzaprine HCl [Flexeril] 10 mg PO Q8HR PRN #20 tab PRN Reason: Pain Ibuprofen [Motrin] 600 mg PO Q8HR PRN #30 tab PRN Reason: Pain Home Medications: Ambulatory Orders Ibuprofen [Motrin] 800 mg PO Q6HR PRN 11/08/17 Levothyroxine Sodium 50 mcg PO AC 11/08/17 ALPRAZolam [Xanax] 0.25 mg PO TID PRN 10 Days #30 tab 11/09/17 Cyclobenzaprine HCl [Flexeril] 10 mg PO Q8HR PRN #20 tab 12/31/19 Ibuprofen [Motrin] 600 mg PO Q8HR PRN #30 tab 12/31/19
--- NOTE | 2019-12-31 12:35 | RAD ---
EXAM DESCRIPTION: X Ray Ribs, right 3 Views CLINICAL HISTORY: 39 years Female, right lower anterolateral rib pain COMPARISON: November 14, 2018. FINDINGS/IMPRESSION: 1. No acute fracture. 2. Visualized lung parenchyma is normal. Electronically signed by: Riccardo Moise MD 12/31/2019 12:33 PM [facility]
[2019-12-31 13:50] VITALS: O2SAT 96
[2019-12-31 13:51] VITALS: BP 157/92; TEMP 97.4
== END 2019-12-31 13:40 | disposition home or self-care (01) ==
LOC: ER 11:35
DX: R07.81 Pleurodynia (principal); F17.210 Nicotine dependence, cigarettes, uncomplicated; J41.0 Simple chronic bronchitis; I10 Essential (primary) hypertension; E07.9 Disorder of thyroid, unspecified; Z79.899 Other long term (current) drug therapy
CPT/HCPCS: 71101; 93005; J1885

== ENCOUNTER → 2020-01-11 | Outpatient (CLI) | payer BC | LOC: GMAE 10:35 | PROVIDERS: ATTEND Family Medicine | DX: E03.9 Hypothyroidism, unspecified (principal); I10 Essential (primary) hypertension ==